=== PATIENT | female | born 2000 | race Caucasian/White ===

== ENCOUNTER 2024-03-20 20:55 | Outpatient (CLI) | payer OTHER, SELFPAY ==
[2024-03-20] VITALS (23 sets, daily range): BP systolic 126–134; BP diastolic 72–82; PULSE 73–86; RESP 16; TEMP 36.9; O2SAT 94–100; BMI 31.8
[2024-03-20 21:51] LABS: Hematocrit 30.3 % (37-47); Hemoglobin 10.2 g/dL (12.0-15.0); Mean Corp Hgb Conc 33.7 g/dL (32-36); Mean Corpuscular Hgb 29.3 pg (27.0-32.0); Mean Corpuscular Volume 87.1 fL (81-99); Mean Platelet Vol. 10.2 fl (6.2-12.0); Platelet Count 192 K/mm3 (150-450); RBC Distribution Width CV 12.9 % (11.6-14.6); RBC Distribution Width SD 40.1 fl (35.1-43.9); Red Blood Count 3.48 M/mm3 (4.2-5.4); White Blood Count 9.2 K/mm3 (4.4-11.0)
[2024-03-20 22:08] LABS: AST(SGOT) 22 U/L (15-37); Alanine Aminotransfer ALT/SGPT 24 U/L (13-56); Creatinine, Serum 0.54 mg/dL (0.55-1.02); EST Glomerular Filtration Rate 147 mL/min (>60); Est Glom Filt Rate - Afr Amer 178 mL/min (>60); Protein, Urine (Random) 8.8 mg/dL (<11.9); Protein:Creat Ratio 320 mg/g CRE (0-200); Uric Acid 3.6 mg/dL (2.6-6.0)
--- NOTE | 2024-03-20 23:13 | OB.TRI.NOTE ---
HPI - General General Date of Admission: 03/20/24 Date of Service: 03/20/24 Chief Complaint: elevated blood pressure at home HPI Narrative NESSA LINDSEY, is a 23 F who presents with elevated blood pressure at home. No MEDRANO or vision changes. No RUQ pain. She has been checking her blood pressures given her lower extremity swelling. PFSH PFSH Home Medications ?Medication ?Instructions ?Recorded ?Last Taken ?Type coenzyme Q10 100 mg capsule (Co 100 mg PO DAILY 03/20/24 03/19/24 22:00 History Q-10) 100 mg magnesium glycinate 100 mg (as 200 mg PO DAILY 03/20/24 03/19/24 21:59 History glycinate) tablet (Mag Glycinate) 200 mg vitamin#30 30 mg iron-10 1 cap PO DAILY 03/20/24 03/19/24 21:58 History mg iron-folic acid 1 mg-omg3 1 cap capsule riboflavin (vitamin B2) 400 mg 400 mg PO DAILY 03/20/24 03/19/24 21:59 History tablet 400 mg Allergy/AdvReac Type Severity Reaction Status Date / Time No Known Allergies Allergy Verified 03/20/24 21:55 Physical Exam Const alert and no apparent distress General Appearance: comfortable HEENT normocephalic Resp normal respiratory effort GI soft to palpation, non-tender and non-distended Extremity Extremity Narrative: 1+ pitting edema bilaterally Neuro deep tendon reflexes 2+ bilaterally NST FHR Rate Baby A Baseline: 140 Variability:: Moderate Accelerations:: 15 x 15 Decelerations:: None NST Reactive:: Yes FHR Category:: Category I Uterine Activity:: none Assessment & Plan (1) 36 weeks gestation of : PLAN: Coming from home with elevated blood pressures at home. Pre e labs normal but p/c ratio elevated. Normal blood pressures in triage and no symptoms of pre e. Discussed warning signs and symptoms, and reasons to call. Cont home BP monitoring. Ok for d/c home. (2) Elevated blood pressure reading: PLAN: This was at home. She has had normal blood pressures here in triage on serial BP monitoring.
== END 2024-03-20 23:17 | disposition home or self-care (01) ==
LOC: WPOUT 21:07 → WP 21:07
PROVIDERS: Referring Provider Obstetrics & Gynecology; Visit Provider Obstetrics & Gynecology
DX: O99.891 Other specified diseases and conditions complicating pregnancy (principal); R03.0 Elevated blood-pressure reading, without diagnosis of hypertension; Z3A.36 36 weeks gestation of pregnancy
CPT/HCPCS: 36415; 59025; 59050; 82565; 82570; 84156; 84450; 84460; 84550; 85027; 99221; G0378

== ENCOUNTER 2024-04-15 19:31 | Inpatient (IN) | payer OTHER, SELFPAY ==
[2024-04-15 19:10] VITALS: BP 126/82; PULSE 83; RESP 16; TEMP 36.6
[2024-04-15 20:29] VITALS: BMI 31.7
[2024-04-15 20:42] LABS: Absolute Lymphocyte Count 1.44 X10^3/uL (0.83-4.51); Absolute Neutrophil Count 10.6 X10^3/uL (2.0-7.7); Basophil# 0.02 X10^3/uL; Basophil% 0.2 % (0-1); Eosinophil# 0.01 X10^3/uL; Eosinophils% 0.1 % (0-5); Hematocrit 33.2 % (37-47); Hemoglobin 11.1 g/dL (12.0-15.0); Lymphocyte # 1.44 X10^3/ul (0.83-4.51); Mean Corp Hgb Conc 33.4 g/dL (32-36); Mean Corpuscular Hgb 29.2 pg (27.0-32.0); Mean Corpuscular Volume 87.4 fL (81-99); Mean Platelet Vol. 10.5 fl (6.2-12.0); Monocyte# 0.86 X10^3/uL; Monocyte% 6.6 % (0-10); NRBC Flagged by Analyzer 0 % (0-5); Neutrophil # 10.62 X10^3/uL (2.7-7.7); Neutrophil % 81.4 % (47-70); Platelet Count 237 K/mm3 (150-450); RBC Distribution Width CV 13.4 % (11.6-14.6); RBC Distribution Width SD 41.9 fl (35.1-43.9)
[2024-04-15 21:25] LABS: Syphilis Antibodies Non-reactive
[2024-04-15 22:47] VITALS: BP 141/75; PULSE 89
[2024-04-15 22:48] VITALS: RESP 18; TEMP 36.9
[2024-04-16] VITALS (18 sets, daily range): BP systolic 106–132; BP diastolic 55–82; PULSE 78–100; RESP 16; TEMP 36.3–36.7; O2SAT 97–99
--- NOTE | 2024-04-16 00:37 | PCM.HP.OB ---
HPI - General General Date of Admission: 04/15/24 HPI Narrative NESSA LINDSEY, is a 23 F who presents at 40 weeks in active labor. PFSH PFSH Home Medications ?Medication ?Instructions ?Recorded ?Last Taken ?Type vitamin#30 30 mg iron-10 1 cap PO DAILY 03/20/24 04/14/24 22:00 History mg iron-folic acid 1 mg-omg3 capsule aspirin 81 mg capsule 81 mg PO DAILY prevent preclampsia 04/15/24 04/14/24 22:00 History famotidine 20 mg tablet (Pepcid) 20 mg PO DAILY indigestion 04/15/24 Unknown History Allergy/AdvReac Type Severity Reaction Status Date / Time No Known Allergies Allergy Verified 04/15/24 21:18 Surgical History [place] teeth extracted Social History Smoking Status: Never smoker History Elective abortions Hx Para 0 Spontaneous abortions Hx # Term Pregnancies Ectopic pregnancies Hx # Pregnancies Multiple births # of living children NST FHR Rate Baby A Baseline: 130, increases, no decreases FHR Category:: Category I Uterine Activity:: every 2-3 minutes strong ROS Constitutional Constitutional: Reports systems reviewed and no addt'l complaints, except as documented; Denies headache(s) Eyes Eyes: Denies acute decrease in peripheral vision, blurry vision or change in vision ENT HEENT: Reports systems reviewed and no addt'l complaints, except as documented Cardiovascular Cardiovascular: Denies chest pain or dizziness Respiratory/Chest Respiratory/Chest: Denies cough, dyspnea, dyspnea on exertion, shortness of breath at rest or shortness of breath with exertion Gastrointestinal Gastrointestinal: Denies abdominal pain, diarrhea, nausea or vomiting Genitourinary Genitourinary: Denies abdominal discomfort Musculoskeletal Musculoskeletal: Denies limited range of motion Integumentary Integumentary: Reports systems reviewed and no addt'l complaints, except as documented Neurologic Neurologic: Reports systems reviewed and no addt'l complaints, except as documented Psychiatric Psychiatric: Reports systems reviewed and no addt'l complaints, except as documented Endocrine Endocrinology: Reports systems reviewed and no addt'l complaints, except as documented Hematologic/Lymphatic Hematologic/Lymphatic: Reports systems reviewed and no addt'l complaints, except as documented Allergic/Immunologic Allergic/Immunologic: Reports systems reviewed and no addt'l complaints, except as documented Vital Signs Vital Signs Vital Signs: 04/15/24 19:10 04/15/24 19:10 04/15/24 19:10 Temperature Temperature Source Temporal Pulse Rate 83 Respiratory Rate Blood Pressure 126/82 H BP Systolic 126 BP Diastolic 82 04/15/24 19:10 04/15/24 19:10 04/15/24 22:47 Temperature 97.8 F Temperature Source Pulse Rate 89 Respiratory Rate 16 Blood Pressure BP Systolic BP Diastolic 04/15/24 22:47 04/15/24 22:48 04/15/24 22:48 Temperature Temperature Source Temporal Pulse Rate Respiratory Rate 18 Blood Pressure 141/75 H BP Systolic 141 BP Diastolic 75 04/15/24 22:48 Temperature 98.5 F Temperature Source Pulse Rate Respiratory Rate Blood Pressure BP Systolic BP Diastolic Weight Weight: 209 lb Body Mass Index (BMI) 31.7 Physical Exam Const alert and oriented x3 General Appearance: cooperative Orientation / Consciousness: awake, oriented to person, oriented to place and oriented to time Exam Limitations: no limitations HEENT normocephalic Head and Scalp: normal to inspection, normocephalic and atraumatic Face and Sinus: normal facial exam Eyes General Eye: normal appearance of both eyes Neck full ROM Chest Chest: symmetrical chest wall rise Resp normal respiratory effort and normal air movement Auscultation: clear to auscultation bilaterally Cardio regular rate, regular rhythm, S1 normal heart sound, S2 normal heart sound, no murmurs, no rub, no gallops and no clicks GI normal to inspection, nondistended, normoactive bowel sounds and non-tender appearance of the vagina normal Bladder / Kidney Exam: no CVA tenderness Back/Spine normal ROM Extremity normal to inspection and full ROM Skin no rashes or lesions noted Neuro oriented x3, CN's II-XII intact bilaterally and moves all extremities Sensorium / Orientation: awake, alert and oriented to person Motor Exam: clonus absent Deep Tendon Reflexes: Rt Patellar (L4): 2+ and Lt Patellar (L4): 2+ Labs Labs Labs: Blood Type A POSITIVE Antibody Screen NEGATIVE Hct 33.2 % (37-47) L Hgb 11.1 g/dL (12.0-15.0) L Syphilis Total Ab Non-reactive HIV negative HepC negative HBsAG negative GBS negative A positive 1hr GCT negative GC/CT negative Rubella Immune Assessment & Plan (1) Active labor: (2) 40 weeks gestation of : (3) Nulliparity: (4) Anemia affecting , antepartum: (5) History of depression: (6) History of post traumatic stress disorder: (7) Anxiety: PLAN: Plan 1) Admit to labor and delivery 2) Routine labs 3) Reactive NST and then IA 4) Pain management upon request 5) Desires waterlabor and , consent signed 6) collaborative physician and notified of above assessment, plan, and patient status
[2024-04-16] MEDS: Oxytocin 15 Units/NS 250ml 15 UNITS/250 ML IV.SOLN 334 UNITS IV (00:59)
[2024-04-16] MEDS: Lidocaine 1% (20 ml mdv) 20 ML Vial INFILT (01:12)
--- NOTE | 2024-04-16 01:33 | EX.PCM.OBRPT ---
Assessment & Plan (1) Vaginal delivery: (2) Lactating mother: (3) Second degree perineal laceration: Maternal Data Information Final EFRAIN: 04/15/24 Gestational age: 40w1d at delivery Vaginal Delivery Maternal Presentation Maternal Presentation: Active Labor and Spontaneous Rupture of Membranes Operative Information Date of Procedure: 04/16/24 Pre-Operative Diagnosis: Active labor at term Post-Operative Diagnosis: , 2nd degree perineal laceration, mild shoulder dystocia Surgery / Procedure Performed: Spontaneous Vaginal Delivery Type of Anesthesia: Local with 1% Lidocaine Estimated Blood Loss: 500ml Time of Delivery: 00:53 Findings Description of Procedure: Labored in tub and progressed to complete with urge to push. Waterbirth of viable female infant over 2nd degree perineal laceration. APGARS 8,9 respectively. head delivered with CANx1, delivered through. Body not forthcoming and poor pushing efforts, right leg in lounge position and body immediately forthcoming. Mild shoulder dystocia easily resolved, lasted approximately 40 seconds. Placed on maternal abdomen, strong cry. Mouth and nares wiped for secretions. Cord doubly clamped and cut by FOB after pulsations ceased, delayed cord clamping. Transferred to bed. Placenta delivered intact via rivera, 3 vessel cord intact. Pitocin started for active 3rd stage management. Perineum inspected and revealed 2nd degree perineal laceration. Repaired with 3.0 vicryl rapide and lidocaine. Fundus firm and hemostasis achieved. EBL 500. Mom and baby stable, planning to breastfeed. Family bonding well. notified of delivery. Presentation: Vertex and AMBAR Amniotic Membrane Rupture Type: Spontaneous Amniotic Fluid Description: Clear Placental Delivery Description: Spontaneous Placenta Disposition: [facility] Cord Vessel Description: 3 Vessels Cord Entanglement: Around neck x 1, loose Nuchal Cord Compression: Without compression A Gender: Female (1 minute): 8 (5 minute): 9 Delayed Cord Clamping: Yes Post Vaginal Delivery Medications Given After Delivery: IV Pitocin and IM Pitocin Episiotomy Description: None Laceration: Perineal Extension/lac and 2nd degree Complication Complications: - (mild shoulder dystocia)
[2024-04-16] MEDS: Oxytocin 10 UNITS/ML Vial IM (01:45)
[2024-04-16] MEDS: Ibuprofen 600 MG Tablet PO ×3 (02:12→22:37)
[2024-04-16] MEDS: Famotidine 20 MG Tablet PO (09:47)
[2024-04-16] MEDS: Prenatal Vits Tablet 1 TABLET PO (09:47)
[2024-04-16] MEDS: Senna/Docusate Sodium 1 Tablet PO (09:47)
[2024-04-16] MEDS: Benzocaine/Lanolin/Aloe Vera 1 SPRAY EACH TOPICAL (10:38)
[2024-04-17 01:49] VITALS: BP 135/82; PULSE 90
[2024-04-17 01:53] VITALS: BP 135/82; PULSE 90; RESP 16; TEMP 37
[2024-04-17 05:40] LABS: Absolute Lymphocyte Count 2.46 X10^3/uL (0.83-4.51); Absolute Neutrophil Count 10.4 X10^3/uL (2.0-7.7); Basophil# 0.01 X10^3/uL; Basophil% 0.1 % (0-1); Eosinophil# 0.12 X10^3/uL; Eosinophils% 0.8 % (0-5); Hematocrit 25.5 % (37-47); Hemoglobin 8.3 g/dL (12.0-15.0); Lymphocyte # 2.46 X10^3/ul (0.83-4.51); Lymphocyte % 17.2 % (19-41); Mean Corp Hgb Conc 32.5 g/dL (32-36); Mean Corpuscular Hgb 28.8 pg (27.0-32.0); Mean Corpuscular Volume 88.5 fL (81-99); Mean Platelet Vol. 9.9 fl (6.2-12.0); Monocyte# 1.19 X10^3/uL; Monocyte% 8.3 % (0-10); NRBC Flagged by Analyzer 0 % (0-5); Neutrophil # 10.43 X10^3/uL (2.7-7.7); Neutrophil % 72.7 % (47-70); Platelet Count 194 K/mm3 (150-450); RBC Distribution Width CV 13.4 % (11.6-14.6); RBC Distribution Width SD 43.3 fl (35.1-43.9); Red Blood Count 2.88 M/mm3 (4.2-5.4); White Blood Count 14.3 K/mm3 (4.4-11.0)
--- NOTE | 2024-04-17 07:26 | PN.OBGYN_ITS ---
Subjective Subjective Doing great. Ambulating and voiding without difficulty. Breast feeding. Minimal lochia. Pain controlled Objective Data Objective Data Vital Signs: Vital Signs Temp Pulse Resp BP Pulse Ox O2 Del Method 98.6 F 90 16 135/82 H 97 Room Air 04/17/24 01:53 04/17/24 01:53 04/17/24 01:53 04/17/24 01:53 04/16/24 07:47 04/17/24 01:53 Oxygen Delivery Method Room Air Weight: 94.801 kg Body Mass Index (BMI) 31.7 Intake & Output: Intake and Output for Last 24 Hours 04/15/24 04/16/24 04/17/24 23:59 23:59 23:59 Intake Total 250 / 250 Output Total 2700 / 2700 Balance -2450 / -2450 Lab / Micro Data 04/17/24 05:30 Labs: Laboratory Results - last 24 hr 04/17/24 05:30: WBC 14.3 H, RBC 2.88 L, Hgb 8.3 L, Hct 25.5 L, MCV 88.5, MCH 28.8, MCHC 32.5, RDW Std Deviation 43.3, RDW Coeff of Sheri 13.4, Plt Count 194, MPV 9.9, Immature Gran % (Auto) 0.900, Neut % (Auto) 72.7 H, Lymph % (Auto) 17.2 L, [place] % (Auto) 8.3, Eos % (Auto) 0.8, Baso % (Auto) 0.1, Absolute Neuts (auto) 10.4 H, Absolute Lymphs (auto) 2.46, Nucleated RBC % 0 Physical Exam Const alert and no apparent distress Narrative: Fundus firm, below umbilicus. Assessment & Plan (1) Vaginal delivery: (2) Second degree perineal laceration: PLAN: Plan Discharge home today
--- NOTE | 2024-04-17 07:28 | PCM.DC.SUM ---
Providers Date of Admission: 04/15/24 Date of Discharge: 04/17/24 Primary Care Physician: No Primary Care Phys Reason For Visit: VAG Diagnosis Discharge Diagnosis (1) Vaginal delivery: Status: Acute Code(s): O80 - Encounter for full-term uncomplicated delivery (2) Second degree perineal laceration: Status: Acute Code(s): O70.1 - Second degree perineal laceration during delivery Plan Discharge home today Medications at Discharge Home Medications vitamin#30 30 mg iron-10 mg iron-folic acid 1 mg-omg3 capsule 1 cap PO DAILY 03/20/24 famotidine 20 mg tablet (Pepcid) 20 mg PO DAILY indigestion 04/15/24 Hospital Course Operations None Procedures None Summary of Care Provided Minutes Spent on Discharge: 21 Hospital Course: Admitted in active labor. Labored and delivered in the tub. No complications . Physical Exam Const alert and no apparent distress Narrative: Fundus firm, below umbilicus. Weight / BMI Weight Weight: 94.801 kg Body Mass Index (BMI) 31.7 ABG / Lab / Microbiology Data 04/17/24 05:30 Laboratory: Laboratory Results - last 24 hr 04/17/24 05:30: WBC 14.3 H, RBC 2.88 L, Hgb 8.3 L, Hct 25.5 L, MCV 88.5, MCH 28.8, MCHC 32.5, RDW Std Deviation 43.3, RDW Coeff of Sheri 13.4, Plt Count 194, MPV 9.9, Immature Gran % (Auto) 0.900, Neut % (Auto) 72.7 H, Lymph % (Auto) 17.2 L, [place] % (Auto) 8.3, Eos % (Auto) 0.8, Baso % (Auto) 0.1, Absolute Neuts (auto) 10.4 H, Absolute Lymphs (auto) 2.46, Nucleated RBC % 0 D/C Instructions May resume sexual activity in: 6 weeks Please Follow Up With: Radha Ramsay MD When: Follow up with our office in 1-2 and 6 weeks or as needed. [phone] Meaningful Use Info Meaningful Use Meaningful Use Diagnoses (Choose all that apply): None applicable Ischemic Stroke Statin Dosing Therapy Reference: STATIN DOSE THERAPY REFERENCE: * Patients > 75 years receive moderate or high dose statin therapy. * Patients 75 years or YOUNGER should receive HIGH intensity statin dose unless contraindicated. You will be required to document reason for non-treatment if statin daily dose does not meet guidelines. HIGH DOSE STATIN THERAPY DAILY Atorvastatin > than or = to 40 mg Rosuvastatin > than or = to 20 mg Amlodipine + Atorvastatin > than or = to 2.5/40 mg Ezetimibe + Simvastatin 10/80 mg Simvastatin 80mg Discharge Plan Admission Admit Date/Time: 04/15/24 19:31 Attending Provider: Lalita Armstrong Primary Care Provider: Care Physician,No Primary Discharge Orders/Prescriptions Prescriptions: Continued famotidine [Pepcid] 20 mg tablet 20 mg PO DAILY PNV #[id number] 30 mg iron-10 mg iron-1 mg capsule 1 cap PO DAILY Discontinued aspirin 81 mg capsule 81 mg PO DAILY Referrals / Follow Up: Care Physician,No Primary [Primary Care Provider] -
[2024-04-17 07:36] VITALS: PULSE 103; O2SAT 99
[2024-04-17 07:37] VITALS: BP 118/73; PULSE 86
[2024-04-17 07:52] VITALS: BP 118/73; PULSE 88; RESP 16; TEMP 36.9; O2SAT 100
[2024-04-17] MEDS: Prenatal Vits Tablet 1 TABLET PO (09:14)
[2024-04-17] MEDS: Ibuprofen 600 MG Tablet PO (09:14)
[2024-04-17] MEDS: Famotidine 20 MG Tablet PO (09:14)
[2024-04-17] MEDS: Senna/Docusate Sodium 1 Tablet PO (09:33)
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
== END 2024-04-17 12:10 | disposition home or self-care (01) | DRG 807 ==
LOC: WPOUT 19:31 → WP 19:32
PROVIDERS: Obstetrics & Gynecology; Admitting Provider Advanced Practice Midwife; Referring Provider Advanced Practice Midwife; Visit Provider Advanced Practice Midwife
DX: O99.02 Anemia complicating childbirth (principal); Z37.0 Single live birth; D64.9 Anemia, unspecified; O66.0 Obstructed labor due to shoulder dystocia; O69.81X0 Labor and delivery complicated by cord around neck, without compression, not applicable or unspecified; O70.1 Second degree perineal laceration during delivery; Z3A.40 40 weeks gestation of pregnancy; Z79.82 Long term (current) use of aspirin
CPT/HCPCS: 59025; 59050; 85025; 86780; 86850; 86900; 86901; 99221; G0378